=== PATIENT | male | born 1970 | race Caucasian/White ===

== ENCOUNTER 2017-08-29 19:18 | Emergency (ER) | payer SELFPAY ==
[2017-08-29] MEDS ORDERED: ASPIRIN 81 MG CHEWABLE TABLET PO ONE (19:40)
[2017-08-29 19:43] LABS: BASO % 0.6 % (0-6); EOS % 2.9 % (0-6); GRAN % 53.4 % (47-80); HEMATOCRIT 49.1 % (42.0-52.0); HEMOGLOBIN 17.1 gm/dl (14.0-18.0); LYMPH % 33.6 % (16-45); MEAN CELL VOLUME 93.9 fl (81-97); MEAN CORPUSCULAR HEMOGLOBIN 32.7 pg (27-33); MEAN CORPUSCULAR HGB CONC 34.8 g/dl (32-36); MEAN PLATELET VOLUME 10.6 fl (7.4-10.4); MONO % 9.5 % (0-9); PLATELET COUNT 190 K/uL (130-400); RED BLOOD COUNT 5.23 M/uL (4.40-5.70); RED CELL DISTRIBUTION WIDTH 13.6 % (11.5-14.5); WHITE BLOOD COUNT W/O DIFF 6.9 K/uL (4.2-12.2)
--- NOTE | 2017-08-29 19:55 | Emergency Department Record ---
History of Present Illness - General Chief Complaint: Chest Pain Stated Complaint: CHEST PAIN Time Seen by Provider: 08/29/17 19:40 Source: Patient, Family Mode of Arrival: Ambulatory Limitations: No limitations - History of Present Illness Initial Comments: pt has had a cough recently and has had severe coughing spells. today he developed chest pain where he felt like something 'is wrong' the pain is reproducible over the costochondral joint. pt has htn, hi chol, pos fam hx and smokes 3 packs a day and has dm. his came home and found him to be diaphoretic MD Complaint: Chest pain Onset/Timin -: Hour(s) Onset: During rest Pain Location: Substernal Severity: Moderate Severity scale (1-10): 8 Quality: Aching, Sharp Consistency: Constant Improves With: Nothing Anginal Symptoms: Diaphoresis, Nausea Other Symptoms: Cough Treatments Prior to Arrival: None - Related Data Home Medications Medication Instructions Recorded Confirmed Last Taken Insulin Degludec [Tresiba 10 unit SQ DAILY 08/29/17 08/29/17 Unknown Flextouch U-100] Metformin HCl 500 mg PO DAILY 08/29/17 08/29/17 Unknown No Home Med [NO HOME MEDS] 08/29/17 08/29/17 Unknown Allergies Allergy/AdvReac Type Severity Reaction Status Date / Time No Known Drug Allergies Allergy Verified 08/29/17 19:23 Travel Screening - Travel/Exposure Within Last 30 Days Have you traveled within the last 30 days?: No Review of Systems Reviewed: No additional complaints except as noted below Constitutional: Reports: As per HPI. Denies: Chills, Fever, Malaise, Night sweats, Weakness, Weight change Eyes: Reports: As per HPI. Denies: Eye discharge, Eye pain, Photophobia, Vision change ENT: Reports: As per HPI. Denies: Congestion, Dental pain, Ear pain, Epistaxis , Hearing loss, Throat pain Respiratory: Reports: As per HPI. Denies: Cough, Dyspnea, Hemoptysis, Stridor, Wheezes Cardiovascular: Reports: As per HPI. Denies: Arrhythmia, Chest pain, Dyspnea on exertion, Edema, Murmurs, Orthopnea, Palpitations, Paroxysmal nocturnal dyspnea, Rheumatic Fever, Syncope Endocrine: Reports: As per HPI. Denies: Fatigue, Heat or cold intolerance, Polydipsia, Polyuria Gastrointestinal: Reports: As per HPI. Denies: Abdominal pain, Constipation, Diarrhea, Hematemesis, Hematochezia, Melena, Nausea, Vomiting Genitourinary: Reports: As per HPI. Denies: Dysuria, Frequency, Hematuria, Incontinence, Retention, Testicular pain, Testicular mass, Urgency Musculoskeletal: Reports: As per HPI. Denies: Arthralgia, Back pain, Gout, Joint swelling, Myalgia, Neck pain Skin: Reports: As per HPI. Denies: Bruising, Change in color, Change in hair/ nails, Lesions, Pruritus, Rash Neurological: Reports: As per HPI. Denies: Abnormal gait, Confusion, Headache, Numbness, Paresthesias, Seizure, Tingling, Tremors, Vertigo, Weakness Psychiatric: Reports: As per HPI. Denies: Anxiety, Auditory hallucinations, Depression, Homicidal thoughts, Suicidal thoughts, Visual hallucinations Hematological/Lymphatic: Reports: As per HPI. Denies: Anemia, Blood Clots, Easy bleeding, Easy bruising, Swollen glands Past Medical History - SOCIAL HISTORY Smoking Status: Current every day smoker Alcohol Use: Rare Drug Use: Rare Drug Use Detail:: Marijuana - RESPIRATORY Hx Respiratory Disorders: No - CARDIOVASCULAR Hx Cardio Disorders: Yes Hx Hypertension: Yes - GI Hx GI Disorders: Yes Hx Pancreatitis: Yes (CHRONIC) - Hx Genitourinary Disorders: No - ENDOCRINE Hx Endocrine Disorders: Yes Hx Diabetes: Yes - MUSCULOSKELETAL Hx Musculoskeletal Disorders: No - PSYCH Hx Psych Problems: No - HEMATOLOGY/ONCOLOGY Hx Hematology/Oncology Disorders: No Family Medical History Any Significant Family History?: Yes Hx Heart Disease: Brother/Sister *Heart Comment: CHF AT 36 Physical Exam - General General Appearance: Alert, Oriented x3, Cooperative, Mild distress - Head Head exam: Normal inspection - Eye Eye exam: Normal appearance, PERRL, EOMI Pupils: Normal accommodation - ENT ENT exam: Normal exam, Mucous membranes moist, Normal external ear exam, Normal orophraynx Ear exam: Normal external inspection. negative: External canal tenderness Nasal Exam: Normal inspection. negative: Discharge, Sinus tenderness Mouth exam: Normal external inspection, Tongue normal Teeth exam: Normal inspection. negative: Dental caries Throat exam: Normal inspection. negative: Tonsillar erythema, Tonsillar exudate - Neck Neck exam: Normal inspection, Full ROM. negative: Tenderness - Respiratory Respiratory exam: Chest wall tenderness. negative: Respiratory distress - Cardiovascular Cardiovascular Exam: Regular rate, Normal rhythm, Normal heart sounds - GI/Abdominal GI/Abdominal exam: Soft, Normal bowel sounds. negative: Tenderness - Rectal Rectal exam: Deferred - exam: Deferred - Extremities Extremities exam: Normal inspection, Full ROM, Normal capillary refill. negative: Tenderness - Back Back exam: Reports: Normal inspection, Full ROM. Denies: Muscle spasm, Rash noted, Tenderness - Neurological Neurological exam: Alert, CN II-XII intact, Normal gait, Oriented X3 - Psychiatric Psychiatric exam: Normal affect, Normal mood - Skin Skin exam: Dry, Intact, Normal color, Warm Course Vital Signs 08/29/17 19:31 Temperature 98.2 F Pulse Rate [ 82 Pulse Ox Probe] Respiratory 20 Rate Blood Pressure 157/86 [Left Arm] Pulse Ox 93 L - Reevaluation(s) Reevaluation #1: 08/29/17 21:12 d/w dr leo who wanted pt transferred Reevaluation #2: 08/29/17 21:13 pt feels better Reevaluation #3: 08/29/17 21:31 transfer was being arranged. pt had been educated to the importance of being further assessed with all of his risk factors . he is leaving [facility]. he has been told of the risk of . he is still going [facility] stating no one is going to tell him what to do, Medical Decision Making - Lab Data Result diagrams: 08/29/17 19:27 08/29/17 19:27 Lab Results 08/29/17 Range/Units 19:27 WBC 6.9 (4.2-12.2) K/uL RBC 5.23 (4.40-5.70) M/uL Hgb 17.1 (14.0-18.0) gm/dl Hct 49.1 (42.0-52.0) % MCV 93.9 (81-97) fl MCH 32.7 (27-33) pg MCHC 34.8 (32-36) g/dl RDW 13.6 (11.5-14.5) % Plt Count 190 (130-400) K/uL MPV 10.6 H (7.4-10.4) fl Gran % 53.4 (47-80) % Lymphocytes % 33.6 (16-45) % Monocytes % 9.5 H (0-9) % Eosinophils % 2.9 (0-6) % Basophils % 0.6 (0-6) % Disposition Disposition: Other Clinical Impression: Chest pain Qualifiers: Chest pain type: unspecified Qualified Code(s): R07.9 - Chest pain, unspecified Hyperglycemia due to type 2 diabetes mellitus Qualifiers: 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 insulin use status Qualified Code(s): E11.65 - Type 2 diabetes mellitus with hyperglycemia Disposition: Against Medical Advice Condition: (2) Stable Instructions: Chest Pain (ED), Diabetic Hyperglycemia (ED) Additional Instructions: may return at any time Forms: Patient Portal Access Quality - Quality Measures Quality Measures: N/A - Blood Pressure Screening Does Patient Have Any of the Following: Active Dx of HTN Blood Pressure Classification: Pre-Hypertensive BP Reading Systolic Measurement: 124 Diastolic Measurement: 66 Screening for High Blood Pressure: Patient Exclusion, Hx of HTN [[id number]]
[2017-08-29 19:59] LABS: ALB/GLOB RATIO 1.3 (1.1-1.8); ALBUMIN 4.1 g/dL (4.0-5.0); ALKALINE PHOSPHATASE 155 U/L (40-129); ALT/SGPT 65 U/L (<41); AST/SGOT 33 U/L (10.0-50.0); BLOOD UREA NITROGEN 13 mg/dL (6-20); CREATININE 0.8 mg/dL (0.7-1.2); EST GLOMERULAR FILTRATION RATE > 60 mL/min; TOTAL PROTEIN 7.2 g/dL (6.6-8.7)
[2017-08-29 20:01] LABS: CKMB 1.6 ng/mL (<6.73)
[2017-08-29] MEDS: NITROGLYCERIN 0.4MG SL TABLET #25 BTL SL PRN ×3 (20:01→20:19)
[2017-08-29] MEDS ORDERED: HUMULIN R 100 UNIT/ML VIAL SQ ONE (20:03)
[2017-08-29] MEDS ORDERED: 0.9 % SODIUM CHLORIDE 1,000 ML BAG IV ONE (20:04)
[2017-08-29 20:13] LABS: GLUCOSE,RANDOM 518 mg/dL (74-109)
[2017-08-29] MEDS ORDERED: KETOROLAC 30 MG/ML VIAL IVP ONE (20:19)
[2017-08-29 21:00] LABS: URINE APPEARANCE CLEAR; URINE BILIRUBIN NEGATIVE (NEGATIVE); URINE BLOOD NEGATIVE (NEGATIVE); URINE COLOR YELLOW; URINE KETONE NEGATIVE (NEGATIVE); URINE LEUKOCYTE ESTERASE NEGATIVE (NEGATIVE); URINE NITRITE NEGATIVE (NEGATIVE); URINE PROTEIN NEGATIVE (NEGATIVE); URINE UROBILINOGEN 0.2 E.U./dL (0.20 - 1.00)
[2017-08-29 21:01] LABS: URINE GLUCOSE (UA) >=1000 mg/dL (NEGATIVE)
--- NOTE | 2017-08-30 20:26 | RADIOLOGY REPORT ---
EXAM: CHEST 2 VIEWS HISTORY: DIFFICULTY IN BREATHING. TECHNIQUE: Frontal and lateral views of the chest were performed. FINDINGS: Heart size is normal. There is subtle infiltrate in the left lower lobe. No pleural effusion. No pulmonary vascular congestion. IMPRESSION: SUBTLE INFILTRATE IN THE LEFT LOWER LOBE. NO PLEURAL EFFUSION. JOB NUMBER: [id number] MTDD
== END 2017-08-29 21:38 | disposition left against medical advice (07) ==
LOC: ER 19:18
DX: R07.9 Chest pain, unspecified (principal); E11.65 Type 2 diabetes mellitus with hyperglycemia; R05 Cough; R11.0 Nausea; R61 Generalized hyperhidrosis; I10 Essential (primary) hypertension; F17.210 Nicotine dependence, cigarettes, uncomplicated; Z79.4 Long term (current) use of insulin
CPT/HCPCS: 36416; 71046; 80053; 81003; 82009; 82553; 82800; 82948; 83690; 84484; 85025; 85379; 93005; 93010; 96374; 96375; 99284; J1885; J7030